=== PATIENT | female | born 1995 | race Caucasian/White ===

== ENCOUNTER 2020-08-31 16:39 | Emergency (ER) | payer BC, MEDICAID ==
[~2020-08-31] VITALS: Ht 162.6 cm; Wt 113.2 kg
[2020-08-31 16:43] VITALS: BP 152/90
[2020-08-31] MEDS ORDERED: LIDOcaine 1% W/epiNEPHrine 1:200,000 10ml vial IJ ONE (17:25)
[2020-08-31] MEDS ORDERED: IBUP-1984 PO (17:39)
[2020-08-31] MEDS ORDERED: DOXY100C43 PO (17:39)
--- NOTE | 2020-08-31 17:40 | NUR ---
PT PLACED IN GOWN, SET UP FOR PROVIDER ORDERED.
== END 2020-08-31 18:31 | disposition home or self-care (01) ==
LOC: ER 16:40
DX: L05.01 Pilonidal cyst with abscess (principal); Z88.1 Allergy status to other antibiotic agents; Z79.2 Long term (current) use of antibiotics; Z79.899 Other long term (current) drug therapy
CPT/HCPCS: 10080; 99283

== ENCOUNTER 2020-10-14 12:52 | Emergency (ER) | payer BC ==
[~2020-10-14] VITALS: Ht 162.6 cm; Wt 116.5 kg
[2020-10-14 13:14] VITALS: BP 129/80
[2020-10-14 13:54] LABS: BASOPHILS % (AUTO) 0.6 % (0-1); EOSINOPHILS # (AUTO) 0.1 X10'3 (0-0.9); EOSINOPHILS % (AUTO) 2.1 % (0-6); HEMATOCRIT 31.9 % (35.0-45.0); HEMOGLOBIN 10.8 g/dl (12.0-16.0); LYMPHOCYTES % (AUTO) 41.4 % (21-51); MEAN CORPUSCULAR HEMOGLOBIN 31.5 PG (27.0-31.0); MEAN CORPUSCULAR HGB CONC 33.9 g/dL (33.0-36.5); MEAN CORPUSCULAR VOLUME 92.9 FL (78-98); MEAN PLATELET VOLUME 10.7 FL (7.4-10.4); MONOCYTES # (AUTO) 0.4 X10'3 (0-0.9); MONOCYTES % (AUTO) 8.5 % (2-12); NEUTROPHILS # (AUTO) 2.3 X10'3 (1.8-7.7); NEUTROPHILS % (AUTO) 47.4 % (42-75); PLATELET COUNT 169 X10'3 (140-440); RED BLOOD COUNT 3.43 X10'6 (4.20-5.60); RED CELL DISTRIBUTION WIDTH 13.5 % (11.5-14.5); WHITE BLOOD COUNT 4.9 X10'3 (4.5-11.0)
[2020-10-14] MEDS ORDERED: medroxyprogesterone acet. 2.5mg tablet PO SCH (16:20)
[2020-10-14] MEDS ORDERED: normal saline 1000ml 1,000 ML IV ONE (16:20)
[2020-10-14] MEDS ORDERED: tranexamic acid 1gm/0.7% sal. 100 ML IV ONE (16:20)
[2020-10-14 16:38] LABS: URINE HCG NEGATIVE (NEG)
[2020-10-14 16:39] LABS: ALANINE AMINOTRANSFERASE 110 U/L (12-78); ALBUMIN 3.7 G/DL (3.4-5.0); ALBUMIN/GLOBULIN RATIO 1.1 (1.1-1.5); ALKALINE PHOSPHATASE 92 IU/L (46-116); ANION GAP 8 (8-16); ASPARTATE AMINO TRANSFERASE 53 U/L (10-37); BILIRUBIN,TOTAL 0.3 MG/DL (0.1-1.0); BLOOD UREA NITROGEN 6 MG/DL (7-18); CALCIUM 8.4 MG/DL (8.5-10.1); CHLORIDE 106 MMOL/L (99-107); CREATININE 0.67 MG/DL (0.40-0.90); GLUCOSE 95 MG/DL (70-104); POTASSIUM 3.8 MMOL/L (3.5-5.1); SODIUM 143 MMOL/L (135-145); TOTAL CARBON DIOXIDE 28.9 MMOL/L (24-32); TOTAL PROTEIN 7.2 G/DL (6.4-8.2); eGFR > 90 ML/MIN
[2020-10-14 16:42] LABS: CLARITY,URINE CLOUDY (Clear); GLUCOSE, URINE NEGATIVE (Neg); KETONES,URINE NEGATIVE (Neg); LEUKOCYTE ESTERASE ,URINE NEGATIVE (Neg); NITRITES, URINE NEGATIVE (Neg); OCCULT BLOOD,URINE LARGE (Neg); PH,URINE 8.5 (4.8-8.0); PROTEIN,URINE NEGATIVE (Neg); UROBILINOGEN,URINE 0.2 E.U/dL (0.2-1.0)
[2020-10-14 16:48] LABS: COLOR,URINE PINK (Yellow); UA COLLECTION TYPE STRAIGHT CATH
[2020-10-14 16:49] LABS: PARTIAL THROMBOPLASTIN TIME 30 SECONDS (22-32)
[2020-10-14 16:50] LABS: TRANSITIONAL EPI CELLS,URINE FEW /HPF
[2020-10-14 16:51] LABS: SQUAMOUS EPITHELIAL CELL,UR MANY /LPF (FEW)
[2020-10-14 16:52] LABS: BACTERIA,URINE NONE SEEN /HPF (Neg); RBC,URINE TNTC /HPF (0-2); WBC,URINE NONE SEEN /HPF (0-4)
[2020-10-14] MEDS ORDERED: MEDR10TA PO (17:18)
== END 2020-10-14 18:05 | disposition home or self-care (01) ==
LOC: ER 12:53
DX: N92.6 Irregular menstruation, unspecified (principal); D64.9 Anemia, unspecified; I74.9 Embolism and thrombosis of unspecified artery; R51.9 Headache, unspecified; Z88.1 Allergy status to other antibiotic agents; Z79.899 Other long term (current) drug therapy
CPT/HCPCS: 36415; 80053; 81001; 81025; 85025; 85610; 85730; 86885; 86900; 86901; 96365; 99284; J7030

== ENCOUNTER 2020-10-29 23:37 | Emergency (ER) | payer BC, OTHER ==
[~2020-10-29] VITALS: Ht 162.6 cm; Wt 118.2 kg
[~2020-10-29 23:37] MED LIST: MEDR10TA PO
[2020-10-30 01:57] LABS: CLARITY,URINE CLOUDY (Clear); COLOR,URINE YELLOW (Yellow); URINE HCG NEGATIVE (NEG)
[2020-10-30 01:58] LABS: BASOPHILS % (AUTO) 0.7 % (0-1); EOSINOPHILS # (AUTO) 0.1 X10'3 (0-0.9); EOSINOPHILS % (AUTO) 1.7 % (0-6); HEMATOCRIT 30.3 % (35.0-45.0); HEMOGLOBIN 10.1 g/dl (12.0-16.0); LYMPHOCYTES # (AUTO) 2.7 X10'3 (1.1-4.8); LYMPHOCYTES % (AUTO) 42.4 % (21-51); MEAN CORPUSCULAR HEMOGLOBIN 30.1 PG (27.0-31.0); MEAN CORPUSCULAR HGB CONC 33.4 g/dL (33.0-36.5); MEAN CORPUSCULAR VOLUME 90.2 FL (78-98); MEAN PLATELET VOLUME 11.1 FL (7.4-10.4); MONOCYTES # (AUTO) 0.5 X10'3 (0-0.9); MONOCYTES % (AUTO) 8.5 % (2-12); NEUTROPHILS % (AUTO) 46.7 % (42-75); PLATELET COUNT 190 X10'3 (140-440); RED BLOOD COUNT 3.36 X10'6 (4.20-5.60); WHITE BLOOD COUNT 6.4 X10'3 (4.5-11.0)
[2020-10-30 02:06] LABS: UA COLLECTION TYPE CLN CATCH MIDSTREAM
[2020-10-30 02:08] LABS: BACTERIA,URINE FEW /HPF (Neg); RBC,URINE TNTC /HPF (0-2); SQUAMOUS EPITHELIAL CELL,UR FEW /LPF (FEW); WBC,URINE NONE SEEN /HPF (0-4)
[2020-10-30 02:11] LABS: ALANINE AMINOTRANSFERASE 46 U/L (12-78); ALBUMIN 3.9 G/DL (3.4-5.0); ALBUMIN/GLOBULIN RATIO 1.1 (1.1-1.5); ALKALINE PHOSPHATASE 99 IU/L (46-116); ANION GAP 8 (8-16); ASPARTATE AMINO TRANSFERASE 22 U/L (10-37); BILIRUBIN,TOTAL 0.2 MG/DL (0.1-1.0); BLOOD UREA NITROGEN 9 MG/DL (7-18); BUN/CREATININE RATIO 9.2 (6.6-38.0); CALCIUM 8.4 MG/DL (8.5-10.1); CHLORIDE 108 MMOL/L (99-107); CREATININE 0.98 MG/DL (0.40-0.90); GLUCOSE 106 MG/DL (70-104); POTASSIUM 3.7 MMOL/L (3.5-5.1); SODIUM 144 MMOL/L (135-145); TOTAL CARBON DIOXIDE 28.1 MMOL/L (24-32); TOTAL PROTEIN 7.3 G/DL (6.4-8.2); eGFR 68 ML/MIN
[2020-10-30] MEDS ORDERED: medroxyPROGESTERone acetate 150mg/ml inj IM ONE (02:15)
[2020-10-30] MEDS ORDERED: MEDR10TA PO (02:22)
[2020-10-30] MEDS ORDERED: TRANEXAMIC ACID 1 GM IN NACL,ISO-OS 100 ML IV ONE (02:50)
[2020-10-30] MEDS ORDERED: medroxyprogesterone acet. 2.5mg tablet PO ONE ×2 (02:59→03:00)
[2020-10-30 03:23] VITALS: BP 112/78
--- NOTE | 2020-10-30 03:24 | NUR ---
PATIENT GIVEN DC INSTRUCTIONS AND RX AND ACKNOWLEGED UNDERSTANDING. PATIENT DC HOME.
== END 2020-10-30 | disposition home or self-care (01) ==
LOC: ER 10-30 04:40
DX: N92.1 Excessive and frequent menstruation with irregular cycle (principal); R10.30 Lower abdominal pain, unspecified; Z88.1 Allergy status to other antibiotic agents; Z79.899 Other long term (current) drug therapy
CPT/HCPCS: 80053; 81001; 81025; 85025; 99283